=== PATIENT | male | born 1985 | race Caucasian/White ===

== ENCOUNTER 2025-02-25 16:17 | Emergency (ER) | payer BC, SELFPAY ==
[2025-02-25 16:19] VITALS: BP 143/98
[2025-02-25 16:41] LABS: Hematocrit 48.0 % (39.0-52.0); Hemoglobin 15.8 g/dL (13.0-18.0); Mean Corp Hgb Conc. 32.9 g/dL (33.0-37.0); Mean Corpuscular Volume 88.4 fL (80.0-94.0); Nucleated Red Blood Cells % 0 % (-); Platelet Count 334 10^3/uL (130-400); Red Cell Dist. Width 12.5 % (11.5-14.5)
[2025-02-25 17:03] LABS: ALT (SGPT) 64 U/L (0-50); AST (SGOT) 40 U/L (17-59); Albumin 5.1 g/dl (3.5-5.0); Alkaline Phosphatase 80 U/L (38-126); Blood Urea Nitrogen 18 mg/dl (9-20); Calcium 9.9 mg/dl (8.4-10.2); Carbon Dioxide 26 mmol/L (22-30); Chloride 101 mmol/L (98-107); Glucose 145 mg/dl (70-99); Potassium 5.0 mmol/L (3.5-5.1); Sodium 134 mmol/L (135-145); Total Protein 8.2 g/dl (6.3-8.2); eGFR > 60.00
--- NOTE | 2025-02-25 18:58 | ED.GENMED ---
History of Present Illness
General
Chief Complaint: Abdominal Symptoms
Source: patient
Exam Limitations: none
Time Seen by Provider: 02/25/25 18:30
Nursing documentation reviewed up to this point in time: agreed with
History of Present Illness
History of Present Illness:
Patient presents to ED secondary to continual upper abdominal discomfort, which started at work, when he felt intense pain in the mid chest, after he swallowed a piece of beef during lunchtime. Patient proceeded to have violent vomiting episode,
where he noted streaks of blood. Afterwards, he self-induced vomiting, so that he can see if there is any more bleeding. However, he only noted around stomach content. Denies fever or chills. Denies difficulty with swallowing or breathing.
Denies previous history of similar symptoms. Denies dizziness or weakness. Denies chest pain.
Review of Systems
Review of Systems
Allergies reviewed?: Yes
All Other Systems: ROS reviewed and negative except as documented in HPI and ROS
Constitutional: Reports no symptoms
Respiratory: Reports no symptoms
Cardiac: Reports no symptoms
ABD/GI: Reports abdominal pain and vomiting
Musculoskeletal: Reports no symptoms
Skin: Reports no symptoms
Neurological: Reports no symptoms
Phy Exam
Physical Exam
Physical Exam:
Physical Exam
General: no apparent distress, not acutely ill. afebrile
Head: nc/at. eomi
Neck: supple. no meningeal signs. normal posterior pharynx
Heart: s1/s2 regular rate and rhythm.
Lungs: no acute respiratory distress. clear bilaterally
Abdomen: normal bowel sounds. not tender.
Neuro: alert and oriented x 3. no focal neurological deficits
Skin: no rash
Psychiatric: well kept. interactive and cooperative
Extremities: no edema. no calf tenderness.
Course
Orders/Labs/Results
Orders:
Orders
02/25/25 16:27
CMP [Comprehensive Metabolic Panel] Urgent
Complete Blood Count/With Diff Urgent
Abnormal Lab Results
02/25/25
16:27
MCHC 32.9 L g/dL
(33.0-37.0)
Abs Immat Gran (auto) 0.1 H 10^3/uL
(0-0.05)
Absolute Neuts (auto) 7.0 H 10^3/uL
(1.4-6.5)
Sodium 134 L mmol/L
(135-145)
Glucose 145 H mg/dl
(70-99)
ALT 64 H U/L
(0-50)
Albumin 5.1 H g/dl
(3.5-5.0)
02/25/25 16:27
02/25/25 16:27
Vital Signs
Initial and Last Documented VS:
Initial Vital Signs
Temp Pulse Resp BP Pulse Ox
98.9 F 98 17 143/98 98
02/25/25 16:19 02/25/25 16:19 02/25/25 16:19 02/25/25 16:19 02/25/25 16:19
Last Documented Vital Signs
Temp Pulse Resp BP Pulse Ox
98.9 F 108 20 123/80 97
02/25/25 16:19 02/25/25 19:18 02/25/25 19:18 02/25/25 19:18 02/25/25 19:18
MDM/Problems Addressed
MDM/Problems Addressed:
History and exam consistent with likely mild gastritis versus esophagitis versus esophageal irritation, from partial blockage after swallowing piece of meat. Do not feel that patient has had significant blood loss nor any evidence of active
bleeding. H&H stable. Patient will be discharged home in stable condition at this time, with recommendation to modify diet to liquid diet along with hydration over the next 48 hours, along with PPI. In addition, recommended GI follow-up as an
outpatient.
*Pulse Oximetry
SaO2: 98
Oxygen Mode of Delivery: Room air
Patient hypoxic: no
*Critical Care Note
Total Time (30-74mins, 75-104mins- exclusive of procedures): Not Applicable
ED Attending Note
-
Portions of this chart may have been created with voice recognition software.� Occasional wrong word or��sound alike� substitutions may have occurred due to the inherent limitations of voice recognition software.
Discharge Plan
Departure
Patient Disposition: Home (Routine Discharge)
Date of Disposition: 02/25/25
Time of Disposition: 19:02
Patient with high blood pressure during this ER visit?: Yes
Condition: Good
Discharge Problem:
Esophagitis
Instructions: Clear Liquid Diet, Esophagitis
Referrals:
Frank Garcia, DO [Family Provider]
Anabel Milner, [Active, Gastroenterology]
Activity Restrictions/Additional Instructions:
As discussed, please follow-up with your primary care physician and/or referred to GI physician for further evaluation and treatment.
Interventions
Interventions:
*Risk Screen - Suicide Last Done: 02/25/25 16:19
*General Assessment Last Done: 02/25/25 16:19
*Neglect/Abuse Screening Last Done: 02/25/25 16:19
*ED- Fall Risk Assessment Last Done: 02/25/25 16:19
*ED COVID-19 Vaccine History Last Done: 02/25/25 16:19
*ED Influenza Vaccine History Last Done: 02/25/25 16:19
*Nursing Disposition Last Done: 02/25/25 19:18
HV-Fpjcst-Egvttbassf Assessment Last Done: 02/25/25 19:15
Discharge Date and Time
Discharge Date/Time: 02/25/25 19:20
Print Language: [id number]
[2025-02-25 19:18] VITALS: BP 123/80
== END 2025-02-25 19:20 | disposition home or self-care (01) ==
LOC: EMR 16:17
PROVIDERS: Student in an Organized Health Care Education/Training Program; EMERGENCY PHYSICIAN Emergency Medicine; FAMILY PHYSICIAN Family Medicine
DX: K20.90 Esophagitis, unspecified without bleeding (principal); R03.0 Elevated blood-pressure reading, without diagnosis of hypertension
CPT/HCPCS: 99283; 80053; 85025